=== PATIENT | female | born 1980 | race Caucasian/White ===

== ENCOUNTER 2021-09-23 01:41 | Emergency (ER) | payer OTHER ==
[~2021-09-23] VITALS: Ht 157.5 cm; Wt 135.2 kg
[2021-09-23 02:16] LABS: URINE BILIRUBIN NEGATIVE (Negative); URINE BLOOD TRACE (Negative); URINE CLARITY CLEAR; URINE COLOR YELLOW; URINE GLUCOSE-RANDOM* NEGATIVE (Negative); URINE KETONES NEGATIVE (Negative); URINE LEUKOCYTES-REFLEX NEGATIVE (Negative); URINE NITRITE-REFLEX NEGATIVE (Negative); URINE PROTEIN (DIPSTICK) NEGATIVE (Negative); URINE SPECIFIC GRAVITY 1.015 (1.005-1.035); URINE UROBILINOGEN 0.2 E.U./dl (0.2-1.0)
[2021-09-23 02:26] LABS: ABSOLUTE NEUTROPHILS 2.7 thou/uL (1.4-8.2); BASOPHILS 0.6 % (0.0-2.0); EOSINOPHILS 1.6 % (0.0-3.0); HEMATOCRIT 28.6 % (37.0-47.0); HEMOGLOBIN 8.6 gm/dL (12.0-15.0); LYMPHOCYTES 32.2 % (24.0-44.0); MCH 19.7 pg (26.0-34.0); MCHC 30.2 g/dL (28.0-37.0); MCV 65.1 fL (80.0-100.0); MONOCYTES 10.6 % (1.0-8.0); PLATELET COUNT 224 thou/uL (150-400); RBC 4.39 mil/uL (4.20-5.00); RDW 22.3 % (10.5-14.5)
[2021-09-23 02:32] LABS: CALCIUM 9.7 mg/dL (8.5-10.1); CREATININE 0.4 mg/dL (0.6-1.0); POTASSIUM 5.6 mmol/L (3.5-5.1)
[2021-09-23 02:38] LABS: TOTAL BILIRUBIN 0.3 mg/dL (0.2-1.0)
[2021-09-23 05:35] VITALS: BP 121/70
--- NOTE | 2021-09-23 08:17 | EKG ---
[place] [address] [facility] [place] [address] ELECTROCARDIOGRAM REPORT Name: CECE BENAVIDES Room #: [facility] Chaidez#: [id number] Admission: 09/23/21 Attend Phys: Discharge: 09/23/21 Date of : 84 Report #: [id number] [facility] ED Test Date: 2021-09-23 Test Time: 03:04:29 Pat Name: CECE BENAVIDES Department: Room: Gender: F Credit Coordinator: : 1980 Requested By: Enrique Shafer Order Number: [id number] MD: Jaylan Higginbotham Measurements Intervals [place] Rate: 66 P: -3 VA: 157 QRS: 8 QRSD: 94 T: 22 QT: 404 QTc: 424 Interpretive Statements Sinus rhythm No significant abnormality No previous ECG available for comparison Electronically Signed On 09-23-2021 8:17:04 [employer] by Jaylan Higginbotham [email or web address] <ELECTRONICALLY SIGNED> By: Jaylan Higginbotham MD, [facility] 09/23/2117 [id number] Jaylan Higginbotham MD, FACC /EPI
== END 2021-09-23 05:35 | disposition home or self-care (01) ==
LOC: ER 01:41
PROVIDERS: Emergency Medicine
DX: R10.30 Lower abdominal pain, unspecified (principal); E11.9 Type 2 diabetes mellitus without complications